=== PATIENT | male | born 2000 | race Caucasian/White ===

== ENCOUNTER 2020-01-25 06:26 | Day surgery (SDC) | payer MEDICAID ==
[~2020-01-25 06:26] MED LIST: Dextrose 5%-0.45% NaCl 1,000 ML IV SCH; Midazolam 1 MG/ML 2 ML SDV ONE; Sodium Chloride 0.9% 10 ML Syringe FLUSH PRN; fentaNYL 100 MCG/2 ML SDV ONE
[2020-01-25] MEDS ORDERED: Midazolam 1 MG/ML 2 ML SDV IV ONE ×7 (06:27→07:30)
[2020-01-25] MEDS ORDERED: fentaNYL 100 MCG/2 ML SDV IV ONE ×3 (06:27→07:23)
--- NOTE | 2020-01-25 08:34 | OR ---
DATE: 01/25/2020 PROCEDURES: Total colonoscopy, narrow-band imaging, and multiple pinch biopsies. INSTRUMENT USED: PCF-H190DL Olympus video colonoscope. PREMEDICATIONS: Fentanyl 100 mcg intravenous, Versed 4 mg intravenous. The procedure was done under pulse oximetry, BP recording, and cutting table operator. INDICATION: The patient with chronic diarrhea, rectal bleeding, as well as iron deficiency anemia, unexplained. Colonoscopic examination is done for detection of any polypoid lesions and removal, biopsies for any evidence of microscopic colitis. Endoscopic hemostasis therapy if needed. DESCRIPTION OF PROCEDURE: Initial rectal exam showed some mild diffuse tenderness. Rigid anoscopy showed distal rectal mucosa with friability, contact bleeding, and ulcerations. The colonoscope was passed with ease up to the ileocecal area. Photographs were taken of the rectosigmoid, descending colon, transverse colon, as well as cecum showing diffuse erythema, friability, contact bleeding, as well as ulcerations. No bleeding was noted from any of the visualized areas at the commencement of the examination. No stricture. No vascular ectasia. No large isolated ulcerations seen. Multiple pinch biopsies were taken from the normal mucosa of the cecum, mid transverse colon, and rectosigmoid, and sent for histopathology. NBI views were obtained. Probing the proximal sides of folds and flexures using adequate distention and clearing up the stool material, withdrawal of the scope was made. No bleeding was noted from any of the visualized areas at the completion of examination. Bowel preparation was found to be adequate, Gilson scale 2 in all the regions, total score 6. IMPRESSION: Ulcerative colitis. The patient tolerated the procedure well. [facility] /[id number]
== END 2020-01-25 09:50 | disposition home or self-care (01) ==
LOC: DL.ENDO 06:26
PROVIDERS: ATTEND Internal Medicine Gastroenterology
DX: K51.90 Ulcerative colitis, unspecified, without complications (principal); D50.9 Iron deficiency anemia, unspecified
CPT/HCPCS: 45380; J2250; J3010; J7042